=== PATIENT | male | born 1990 | race African-American/Black ===

== ENCOUNTER 2016-12-31 14:22 | Emergency (ER) | payer OTHER ==
[~2016-12-31 14:22] MED LIST: CEPH500C3 PO; IBUP800T23 PO; Z.0.NO CURRENT MEDS
[2016-12-31 14:28] VITALS: BP 154/92; PULSE 86; RESP 16; TEMP 98.2; O2SAT 99
[2016-12-31] MEDS ORDERED: MOTR200T4 PO (15:48)
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
== END 2016-12-31 16:01 | disposition home or self-care (01) ==
LOC: NEPK 14:22
DX: S39.012A Strain of muscle, fascia and tendon of lower back, initial encounter (principal); F17.210 Nicotine dependence, cigarettes, uncomplicated; V49.59XA Passenger injured in collision with other motor vehicles in traffic accident, initial encounter; Y92.410 Unspecified street and highway as the place of occurrence of the external cause
CPT/HCPCS: 99283

== ENCOUNTER 2017-01-19 13:36 | Emergency (ER) | payer SELFPAY ==
[~2017-01-19 13:36] MED LIST changes: -CEPH500C3 PO; -IBUP800T23 PO; +MOTR200T4 PO; -Z.0.NO CURRENT MEDS
[2017-01-19 13:38] VITALS: BP 141/87; PULSE 81; RESP 14; TEMP 98.4; O2SAT 98
--- NOTE | 2017-01-19 14:09 | PD ---
HPI Chief Complaint: GI Complaint Time Seen by Provider: 14:09 Travel History International Travel<30 days: No Contact w/Intl Traveler<30days: No Traveled to known affect area: No History of Present Illness HPI 26-year-old male presents to emergency Department with complaint of continued nausea after consuming raw chicken yesterday at [employer]. He reports vomiting one time last night and reports soft stool last night also. Denies hematochezia, hematemesis. Reports abdominal tenderness around the umbilical area, but denies abdominal pain. Denies fever. Has been drinking fluids today without vomiting. No bowel movement today. and has no other medical complaints. No known allergies. No other modifying factors or associated signs and symptoms. PFSH Past Medical History Cancer: No Diabetes: No Psychiatric: No Immunizations Current: Yes Seizures: No Thyroid Disease: No Ulcer: No Past Surgical History Other Surgery: No Social History Alcohol Use: No Tobacco Use: Yes (/2 PPD) Substance Use: No Allergies-Medications (Allergen,Severity, Reaction): Coded Allergies: No Known Allergies (Verified , 01/19/17) Reported Meds & Prescriptions Reported Meds & Active Scripts Active Zofran Odt (Ondansetron Odt) 4 Mg Tab 4 Mg SL Q8HR PRN Review of Systems Except as stated in HPI: all other systems reviewed are Neg Physical Exam Narrative GENERAL: Well-nourished, well-developed male patient, in no acute distress; afebrile; nontoxic appearing SKIN: Warm and dry. HEAD: Atraumatic. Normocephalic. EYES: Pupils equal and round. No scleral icterus. No injection or drainage. ENT: Mucosa pink and moist. Airway patent. NECK: Trachea midline. CARDIOVASCULAR: Regular rate and rhythm. No murmur appreciated. RESPIRATORY: No accessory muscle use. Clear to auscultation. Breath sounds equal bilaterally. GASTROINTESTINAL: Abdomen soft, tenderness on palpation to umbilical area, nondistended. Hepatic and splenic margins not palpable. Bowel sounds are active 4 quadrants. Nonrigid. No guarding. MUSCULOSKELETAL: No obvious deformities. No clubbing. No cyanosis. No edema. NEUROLOGICAL: Awake and alert. Oriented 3. No obvious cranial nerve deficits. Motor grossly within normal limits. Normal speech. PSYCHIATRIC: Appropriate mood and affect; insight and judgment normal. Data Data Last Documented VS Vital Signs Date Time Temp Pulse Resp B/P Pulse Ox O2 Delivery O2 Flow Rate FiO2 01/19/17 13:38 98.4 81 14 141/87 98 Orders Ondansetron Odt (Zofran Odt) (01/19/17 14:15) MDM Medical Decision Making Medical Screen Exam Complete: Yes Emergency Medical Condition: Yes Medical Record Reviewed: Yes Differential Diagnosis Gastritis, nausea, raw food consumption Narrative Course 26-year-old male with gastritis after consuming raw chicken yesterday. Vomited one time last night without continued vomiting today. Had one soft stool last night without continued bowel movements today. Patient is afebrile nontoxic appearing. He denies fever. I discussed the patient with Dr. Burk, by sending position, and she recommended the patient be discharged home with Zofran. Zofran administered in the ER. Zofran prescribed for home. Discussed reasons to return to the emergency department. Patient verbalizes understanding and agreement with treatment plan. Patient is medically cleared and stable for discharge. Instructed patient to follow up with primary care provider. Patient agrees with treatment plan. The patients vital signs are stable and the patient is stable for outpatient follow-up and treatment. Patient discharged home, stable and in no acute distress. Diagnosis Primary Impression: Gastritis Qualified Code: K29.00 - Other acute gastritis without hemorrhage Referrals: Primary Care Physician Patient Instructions: Gastritis (ED), General Instructions Additional Instructions: Zofran is prescribed and as needed for nausea/vomiting Increase diet to regular diet as tolerated Follow-up with primary care provider Return to the emergency department immediately with worsening of symptoms, particularly as discussed Med/Other Pt SpecificInfo: Prescription(s) given Scripts Ondansetron Odt (Zofran Odt)4 Mg Tab4 Mg SL Q8HR PRN (Nausea/Vomiting) #10 TAB Ref 0 Prov:Silva See 01/19/17 Disposition: 01 DISCHARGE HOME Condition: Stable Silva See Jan 19, 2017 14:09
[2017-01-19] MEDS ORDERED: ONDANSETRON ODT 4 MG TAB PO ONE (14:15)
[2017-01-19] MEDS ORDERED: ZOFR4TAB3 SL (14:17)
== END 2017-01-19 14:45 | disposition home or self-care (01) ==
LOC: NEPD 13:36
DX: K29.70 Gastritis, unspecified, without bleeding (principal); F17.200 Nicotine dependence, unspecified, uncomplicated
CPT/HCPCS: 99283

== ENCOUNTER 2017-01-28 04:23 | Inpatient (IN) | payer SELFPAY ==
[~2017-01-28] VITALS: Ht 172.7 cm; Wt 105.0 kg
[~2017-01-28 04:23] MED LIST changes: -MOTR200T4 PO; +ZOFR4TAB3 SL
[2017-01-28 04:27] VITALS: BP_SYST 125; BP_SYST 167; BP_DIAS 71; BP_DIAS 93; PULSE 77; RESP 18; TEMP 98.1; TEMP 98.4; O2SAT 100
[2017-01-28] MEDS ORDERED: MORPHINE SULFATE 4 MG/ML INJ IV PUSH ONE (05:00)
[2017-01-28] MEDS ORDERED: ONDANSETRON HCL 4 MG/2 ML VIAL IV ONE (05:00)
[2017-01-28] MEDS ORDERED: SODIUM CHLOR 0.9% 1000 ML INJ 1,000 ML IV ONE (05:00)
[2017-01-28 05:20] LABS: AUTOMATED NEUTROPHIL # 2.3 TH/MM3 (1.8-7.7); BASOPHIL # 0.1 TH/MM3 (0-0.2); BASOPHIL % 0.8 % (0.0-2.0); EOSINOPHIL # 0.2 TH/MM3 (0-0.4); EOSINOPHIL % 2.7 % (0.0-4.0); HEMATOCRIT 43.8 % (39.0-51.0); LYMPH % 60.9 % (9.0-44.0); LYMPHOCYTE # 4.9 TH/MM3 (1.0-4.8); MEAN CELL VOLUME 83.4 FL (80.0-100.0); MEAN CORPUSCULAR HEMOGLOBIN 28.2 PG (27.0-34.0); MEAN CORPUSCULAR HGB CONC 33.8 % (32.0-36.0); MONO % 6.8 % (0.0-8.0); NEUT % 28.8 % (16.0-70.0); PLATELET COUNT 264 TH/MM3 (150-450); RED BLOOD COUNT 5.26 MIL/MM3 (4.50-5.90); RED CELL DISTRIBUTION WIDTH 12.7 % (11.6-17.2)
[2017-01-28 05:21] LABS: HEMO FLAGS AUTO DIFF
--- NOTE | 2017-01-28 05:25 | PD ---
HPI Chief Complaint: Abdominal Pain Time Seen by Provider: 04:55 Travel History International Travel<30 days: No Contact w/Intl Traveler<30days: No Traveled to known affect area: No History of Present Illness HPI The patient is 26 year old male who presents to the [facility] emergency department with a history of right upper quadrant abdominal pain that began suddenly 30 minutes prior to arrival. The patient reports that the pain began at a mild severity having gradually worsened to more painful. The patient reports that the pain is an aching sensation. The patient reports the pain is constant. He reports that radiates to the right flank. The patient reports that he last ate approximately an hour and a half prior to the onset of the pain. He denies ever having a pain like this previously. He denies having any nausea, vomiting, or diarrhea associated with this. He denies having any recent constipation. He denies having any dysuria, hematuria, urinary urgency, or frequency. On review of systems, the patient denies any recent fevers, cough , congestion, neck pain, chest pain, shortness of breath, or neurologic symptoms. COUNT INCLUDES THE [facility] Past Medical History Narrative Medical The patient's past medical history is reportedly none. Medical History: Denies Significant Hx Cancer: No Diabetes: No Diminished Hearing: No Psychiatric: No Immunizations Current: Yes Seizures: No Thyroid Disease: No Ulcer: No Influenza Vaccination: No Past Surgical History Narrative Surgical Patient's past surgical history is reportedly none. Surgical History: No Previous Surgery Other Surgery: No Social History Alcohol Use: No Tobacco Use: Yes (/2 PPD) Substance Use: No Allergies-Medications (Allergen,Severity, Reaction): Coded Allergies: No Known Allergies (Verified , 01/28/17) Reported Meds & Prescriptions Reported Meds & Active Scripts Active No Active Prescriptions or Reported Medications Review of Systems Except as stated in HPI: all other systems reviewed are Neg General / Constitutional: No: Fever Eyes: No: Visual changes HENT: No: Headaches Cardiovascular: No: Chest Pain or Discomfort Respiratory: No: Shortness of Breath Gastrointestinal: Positive: Abdominal Pain, No: Nausea, Vomiting, Diarrhea, Hematochezia, Constipation, Changes in Bowel Habits, Indigestion, Loss of Appetite Genitourinary: No: Dysuria Musculoskeletal: No: Pain Skin: No Rash Neurologic: No: Weakness, Focal Abnormalities, Change in Mentation, Slurred Speech, Sensory Disturbance Psychiatric: No: Depression Endocrine: No: Polydipsia Hematologic/Lymphatic: No: Easy Bruising Physical Exam Narrative General: The patient is a well-developed well-nourished male in no acute distress. Head and Neck exam: Head is normocephalic atraumatic. Eyes: EOMI, pupils are equal round and reactive to light. Nose: Midline septum with pink mucous membranes Mouth: Dentition unremarkable. Moist mucus membranes. Posterior oropharynx is not erythematous. No tonsillar hypertrophy. Uvula midline. Airway patent. Neck: No palpable lymphadenopathy. No nuchal rigidity. No thyromegaly. Cardiovascular: Regular rate and rhythm without murmurs, gallops, or rubs. Lungs: Clear to auscultation bilaterally. No wheezes, rhonchi, or rales. Abdomen: Soft, with tenderness on palpation of the right upper quadrant with a positive Beckett sign. The patient also has tenderness on palpation of the midepigastric area. No other tenderness on palpation of the other quadrants of the abdomen. Normal bowel sounds are audible. No tenderness on palpation of McBurney's point. No guarding, rebound, or rigidity. Extremities: No clubbing, cyanosis, or edema. 2+ pulses in all 4 extremities. No calf tenderness on palpation. Back: No spinous process tenderness to palpation. No costovertebral angle tenderness to palpation. Neurologic Exam: Grossly nonfocal. Skin Exam: No rash noted. Intact skin that is warm and dry. Data Data Last Documented VS Vital Signs Date Time Temp Pulse Resp B/P Pulse Ox O2 Delivery O2 Flow Rate FiO2 01/28/17 06:08 80 18 120/59 98 Room Air 01/28/17 04:27 98.4 Orders Complete Blood Count With Diff (01/28/17 04:55) Comprehensive Metabolic Panel (01/28/17 04:55) C-Reactive Protein (Crp) (01/28/17 04:55) Lipase (01/28/17 04:55) Ct Abd/Pel W Iv Contrast(Rout) (01/28/17 04:55) Iv Access Insert/Monitor (01/28/17 04:55) Ecg Monitoring (01/28/17 04:55) Oximetry (01/28/17 04:55) Sodium Chlor 0.9% 1000 Ml Inj (Ns 1000 M (01/28/17 05:00) Ondansetron Inj (Zofran Inj) (01/28/17 05:00) Morphine Inj (Morphine Inj) (01/28/17 05:00) Potassium Chloride (Kcl) (01/28/17 09:00) Iohexol 350 Inj (Omnipaque 350 Inj) (01/28/17 06:20) Potassium Chloride (Kcl) (01/28/17 06:45) Piperacil-Tazo 3.375 Gm Premix (Zosyn 3. (01/28/17 07:00) Admit Order (Ed Use Only) (01/28/17 06:49) Labs Laboratory Tests Test 01/28/17 05:05 White Blood Count 8.0 TH/MM3 Red Blood Count 5.26 MIL/MM3 Hemoglobin 14.8 GM/DL Hematocrit 43.8 % Mean Corpuscular Volume 83.4 FL Mean Corpuscular Hemoglobin 28.2 PG Mean Corpuscular Hemoglobin 33.8 % Concent Red Cell Distribution Width 12.7 % Platelet Count 264 TH/MM3 Mean Platelet Volume 8.9 FL Neutrophils (%) (Auto) 28.8 % Lymphocytes (%) (Auto) 60.9 % Monocytes (%) (Auto) 6.8 % Eosinophils (%) (Auto) 2.7 % Basophils (%) (Auto) 0.8 % Neutrophils # (Auto) 2.3 TH/MM3 Lymphocytes # (Auto) 4.9 TH/MM3 Monocytes # (Auto) 0.5 TH/MM3 Eosinophils # (Auto) 0.2 TH/MM3 Basophils # (Auto) 0.1 TH/MM3 CBC Comment AUTO DIFF Differential Comment AUTO DIFF CONFIRMED Sodium Level 142 MEQ/L Potassium Level 3.3 MEQ/L Chloride Level 109 MEQ/L Carbon Dioxide Level 24.7 MEQ/L Anion Gap 8 MEQ/L Blood Urea Nitrogen 13 MG/DL Creatinine 0.85 MG/DL Estimat Glomerular Filtration 131 ML/MIN Rate Random Glucose 114 MG/DL Calcium Level 8.2 MG/DL Total Bilirubin 0.2 MG/DL Aspartate Amino Transf 16 U/L (AST/SGOT) Alanine Aminotransferase 31 U/L (ALT/SGPT) Alkaline Phosphatase 77 U/L C-Reactive Protein 0.45 MG/DL Total Protein 6.8 GM/DL Albumin 3.4 GM/DL Lipase 234 U/L MDM Medical Decision Making Medical Screen Exam Complete: Yes Emergency Medical Condition: Yes Medical Record Reviewed: Yes Differential Diagnosis Biliary colic, versus peptic ulcer disease, versus acid reflux, versus acute cholecystitis, versus pancreatitis Narrative Course During the course of the patients emergency department visit, the patients history, examination, and differential diagnosis were reviewed with the patient. The patient had IV access obtained and blood work sent for analysis. The patient was placed on a diagnostic cardiac sonographer with oximetry and blood pressure monitoring. A CT scan of the abdomen and pelvis was ordered. The patient was initially provided normal saline 1 L IV fluid bolus, morphine for pain, Zofran for nausea. The patients laboratory studies were reviewed and remarkable for a CBC that shows a white count of 8, hemoglobin 14.8, platelets 264 with 60.9 lymphocytes, CMP is remarkable for potassium of 3.3 which was supplemented orally, glucose 114, calcium 8.2, C-reactive protein 0.45, lipase 234 Radiology studies were reviewed and remarkable for CT scan of the abdomen and pelvis showed small. Cholecystic fluid, acute cholecystitis possible in the proper clinical setting, mild distention of the common bile duct of uncertain etiology, no perceptible known. The rest of the CT of the abdomen and pelvis is unremarkable, appendix is visualized and normal. A call was placed out to the general surgeon. I spoke to Dr. Field. He did agree to admit the patient for continued evaluation and treatment. The patient was given a dose of Zosyn 3.375 g IV. The patients results were discussed with the patient, including the plan of care. I explained that further testing and/ or monitoring is indicated based on the patients history, examination, and/ or laboratory findings. Therefore, I recommended admission for additional evaluation. The patient expressed understanding and was agreeable with this plan. The patient was admitted to the hospital in stable condition and sent to a bed under the care of the general surgeon. Diagnosis Primary Impression: Abdominal pain Qualified Code: R10.11 - Right upper quadrant abdominal pain Additional Impression: Acute cholecystitis Admitting Information Admitting Physician Requests: Admit Scripts No Active Prescriptions or Reported Meds Tia Maradiaga MD Jan 28, 2017 05:25
[2017-01-28 05:41] VITALS: O2SAT 98
[2017-01-28 05:46] LABS: ALT (GPT) 31 U/L (12-78); ANION GAP 8 MEQ/L (5-15); AST (GOT) 16 U/L (15-37); BICARBONATE 24.7 MEQ/L (21.0-32.0); BLOOD UREA NITROGEN 13 MG/DL (7-18); CHLORIDE 109 MEQ/L (98-107); GLOMERULAR FILTRATION RATE 131 ML/MIN (>89); POTASSIUM 3.3 MEQ/L (3.5-5.1); SODIUM (NA) 142 MEQ/L (136-145)
[2017-01-28 05:48] LABS: SCAN/DIFF AUTO DIFF CONFIRMED
[2017-01-28 05:49] LABS: ALKALINE PHOSPHATASE 77 U/L (45-117); TOTAL BILIRUBIN ADULT 0.2 MG/DL (0.2-1.0)
[2017-01-28 06:08] VITALS: BP 120/59; PULSE 80; RESP 18; O2SAT 98
[2017-01-28] MEDS ORDERED: IOHEXOL 350 MG/ML 10 ML VIAL (for RAD DIAG) IV ONE (06:20)
--- NOTE | 2017-01-28 06:36 | RADRPT ---
EXAM DATE/TIME: 01/28/2017 06:06 [facility] COMPARISON: No previous studies available for comparison. INDICATIONS : Right upper quadrant pain. IV CONTRAST: 94 cc Omnipaque 350 (iohexol) IV ORAL CONTRAST: No oral contrast ingested. RADIATION DOSE: 20.27 CTDIvol (mGy) MEDICAL HISTORY : None SURGICAL HISTORY : None. ENCOUNTER: Initial ACUITY: 1 day PAIN SCALE: 10/10 LOCATION: Right upper quadrant TECHNIQUE: Volumetric scanning of the abdomen and pelvis was performed. Using automated exposure control and ad justment of the mA and/or kV according to patient size, radiation dose was kept as low as reasonably achievable to obtain optimal diagnostic quality images. FINDINGS: LOWER LUNGS: Mild dependent atelectasis seen in the visualized lung bases. LIVER: Homogeneous density without lesion. There is no dilation of the biliary tree. There is mild perichol ecystic fluid. No radiopaque gallstone seen. Common bile duct caliber is prominent for patient this a ge, measures approximately 7.5 mm.. SPLEEN: Normal size without lesion. PANCREAS: Within normal limits. KIDNEYS: Normal in size and shape. There is no mass, stone or hydronephrosis. ADRENAL GLANDS: Within normal limits. VASCULAR: There is no aortic aneurysm. BOWEL/MESENTERY: The stomach, small bowel, and colon demonstrate no acute abnormality. There is no free intraperitone al air or fluid. The appendix is well-visualized and normal. ABDOMINAL WALL: Within normal limits. RETROPERITONEUM: There is no lymphadenopathy. BLADDER: No wall thickening or mass. REPRODUCTIVE: Within normal limits. INGUINAL: There is no lymphadenopathy or hernia. MUSCULOSKELETAL: Within normal limits for patient age. CONCLUSION: 1. Small pericholecystic fluid. Acute cholecystitis possible in the proper clinical setting. Mild dis tention of the common bile duct of uncertain etiology. No perceptible stone. 2. The breast of the CT of the abdomen and pelvis is within normal limits. The appendix is well-visua lized and normal. Girma Pretty MD on January 28, 2017 at 6:30 Board Certified Radiologist. This report was verified electronically.
[2017-01-28] MEDS ORDERED: POTASSIUM CHLORIDE 20 MEQ CONTROLLED RELEASE TAB PO ONE (06:45)
[2017-01-28] MEDS ORDERED: PIPERACIL-TAZO 3.375 GM PREMIX 50 ML IV ONE (07:00)
[2017-01-28 07:06] VITALS: BP 107/61; PULSE 68; RESP 16; O2SAT 98
--- NOTE | 2017-01-28 08:19 | RADRPT ---
EXAM DATE/TIME: 01/28/2017 07:41 [facility] COMPARISON: No previous studies available for comparison. INDICATIONS : RUQ pain. MEDICAL HISTORY : Abdominal pain. SURGICAL HISTORY : None. ENCOUNTER: Initial ACUITY: 2 days PAIN SCORE: 10/10 LOCATION: Right upper quadrant MEASUREMENTS: LIVER: 18.6 cm length COMMON DUCT: 9 mm RIGHT KIDNEY: 11.1 x 7.0 x 5.1 cm FINDINGS: LIVER: Borderline increased echotexture without focal lesion or ductal dilatation. Hepatopedal flow. COMMON DUCT: No intraluminal mass or stone visualized. GALLBLADDER: Contains shadowing stone in gallbladder neck, demonstrates no wall thickening or pericholecystic flui d. PANCREAS: The visualized portions are within normal limits. RIGHT KIDNEY: No evidence of hydronephrosis, stone, or mass. CONCLUSION: 1. Non-mobile gallstone in the gallbladder neck. 2. Liver is borderline increased in echogenicity which can be seen with mild hepatic steatosis. Sami Tolentino MD on January 28, 2017 at 8:16 Board Certified Radiologist. This report was verified electronically.
[2017-01-28] MEDS ORDERED: POTASSIUM CHLORIDE 20 MEQ CONTROLLED RELEASE TAB PO SCH (09:00)
[2017-01-28 09:05] VITALS: BP 106/54; PULSE 72; RESP 16; O2SAT 100
--- NOTE | 2017-01-28 18:04 | MB ---
cc: ARAM GRAYSON MD DATE OF CONSULTATION 01/28/2017 CHIEF COMPLAINT Abdominal pain. HISTORY OF PRESENT ILLNESS The patient is a 26-year-old male who presented to the emergency department with acute onset of right upper quadrant abdominal pain. The pain occurred approximately 30 minutes prior to being admitted to the emergency department. He states it was severe, it was 9/10, sharp, happened after he ate a meal and did not improve initially. He never had pain quite this severe before. He denied any associated nausea, vomiting or fevers or chills. The patient states the pain has improved with pain medication and was worse with movement. Further evaluation including CT scan and right upper quadrant ultrasound showing gallstones in the gallbladder with some gallbladder wall thickening. Normal WBC and normal AST, ALT and alk phos and T bili. Surgery was consulted. On my exam the patient's pain has significantly improved. It is much better than it was and the patient is resting comfortably now. PAST MEDICAL HISTORY The patient denies any medical history. PAST SURGICAL HISTORY The patient has had no surgery. ALLERGIES NO KNOWN DRUG ALLERGIES. SOCIAL HISTORY Occasional EtOH. Positive smoking. MEDICATIONS See EMR. FAMILY HISTORY Denies diabetes. Mother with unknown type of cancer. REVIEW OF SYSTEMS GENERAL: The patient denies fever or generalized pain. HEENT: Denies vision changes or headaches. NECK: Denies swelling or pain. RESPIRATORY: Denies cough or wheeze. GASTROINTESTINAL: Complains of abdominal pain. Denies nausea, vomiting. CARDIOVASCULAR: Denies chest pain or palpitations. GENITOURINARY: Denies dysuria, hematuria. MUSCULOSKELETAL: Denies arthralgia, myalgia. SKIN: Denies masses or lesions. NEUROLOGIC: Denies weakness or numbness. PSYCHIATRIC: Denies depression or change in mood. ENDOCRINE: Denies polyuria, polydipsia. HEMATOLOGIC: Denies easy bruising. PHYSICAL EXAMINATION GENERAL: The patient no acute distress. VITAL SIGNS: Temperature 98.4, pulse 77, respirations 18, blood pressure 125/71, saturation 100% on room air. HEENT: PERRLA, EOMI. No scleral icterus. NECK: Supple. Trachea midline. LUNGS: Clear to auscultation, bilateral expansion. HEART: S1-S2. Regular rhythm. ABDOMEN: Soft, nontender. No rebound or guarding. EXTREMITIES: Warm, well-perfused. No edema. NEUROLOGIC: GCS of 15, 5/5 motor all extremities. SKIN: No obvious masses or lesions. LABORATORY AND DIAGNOSTIC DATA White blood cell 8, hemoglobin 14.8, hematocrit 43.8, platelets 264. Sodium 142, potassium 3.3, BUN 13, creatinine 0.5, calcium 8.2, AST 16, ALT 31, T bili 0.2, lipase 234, albumin 3.4. IMAGING CT scan reviewed by myself. Small pericholecystic fluid questionable cholecystitis. Minimal dilation bile duct. Positive gallstones in gallbladder neck. Common bile duct 9 mm. No stone was visualized. The gallbladder contains gallstone in neck. No wall thickening. No pericholecystic fluid. ASSESSMENT The patient a 26-year-old male presents with acute onset of right upper quadrant pain consistent with symptomatic cholelithiasis. AST, ALT, alk phos, T bili all within normal limits. White count normal as well. The patient denies any fevers. PLAN After full clinical, radiologic and laboratory workup, the patient with symptomatic cholelithiasis. Discussed with the patient in regards and offered laparoscopic cholecystectomy. However, at this time the patient has no signs of infection and this could be managed as an outpatient. Discussed with the patient regarding cholecystectomy as an outpatient versus inpatient. The patient states that he wants to defer cholecystectomy for now. He will consider his options and will consider to observe clinically. We will have the patient follow up in the office in several weeks to reevaluate to see if the patient has decided for cholecystectomy. Discussed in detail regarding what to look for if acute onset of symptoms, return and told the patient to come to the emergency department if experiencing ant fevers, significant pain or change in a clinical status. The patient stated understanding, agreed and would like to proceed. MD KOREY Jim/AUBREY /3:41 PM /5:49 PM
== END 2017-01-28 14:20 | disposition home or self-care (01) | DRG 446 ==
LOC: NEPC 04:23 → NEDA 06:50
PROVIDERS: ADMIT Surgery; ATTEND Surgery
DX: K80.00 Calculus of gallbladder with acute cholecystitis without obstruction (principal); F17.210 Nicotine dependence, cigarettes, uncomplicated
CPT/HCPCS: 74177; 76705; 80053; 83690; 85025; 86140; 96361; 96374; 96375; J2270; J2405; J2543; J7030; Q9967

== ENCOUNTER 2017-10-27 00:44 | Emergency (ER) | payer SELFPAY ==
[~2017-10-27] VITALS: Ht 172.7 cm; Wt 110.0 kg
[2017-10-27 01:16] VITALS: O2SAT 20
[2017-10-27 01:40] VITALS: BP 129/58; PULSE 88; RESP 18; TEMP 98.3; O2SAT 100
[2017-10-27] MEDS ORDERED: CLOTR1%T TOPICAL (02:16)
--- NOTE | 2017-10-27 02:18 | PD ---
HPI Chief Complaint: Skin Problem Time Seen by Provider: 02:04 Travel History International Travel<30 days: No Contact w/Intl Traveler<30days: No Traveled to known affect area: No History of Present Illness HPI 27-year-old circumcised male presents for evaluation of dryness and flaky skin of the glans penis. It started 1 week ago. He denies any pain, itching. He denies any urethral discharge. He denies any testicular scrotal pain, nausea or vomiting, fevers or chills. He is sexually active. He is concerned that he has a yeast infection. He has no other complaints at this time. [facility] Past Medical History Cancer: No Diabetes: No Diminished Hearing: No Psychiatric: No Immunizations Current: Yes Seizures: No Thyroid Disease: No Ulcer: No Tetanus Vaccination: Unknown Influenza Vaccination: No Past Surgical History Surgical History: No Previous Surgery Other Surgery: No Social History Alcohol Use: No Tobacco Use: Yes (/2 PPD) Substance Use: No Allergies-Medications (Allergen,Severity, Reaction): Coded Allergies: No Known Allergies (Verified Adverse Reaction, Unknown, 10/27/17) Reported Meds & Prescriptions Reported Meds & Active Scripts Active Clotrimazole Topical (Clotrimazole) 1% Soln 1 Applic TOPICAL BID 21 Days Review of Systems Except as stated in HPI: all other systems reviewed are Neg Physical Exam Narrative GENERAL: Well-nourished male who is sleeping but easily arousable CARDIOVASCULAR: Regular rate and rhythm. No murmur appreciated. RESPIRATORY: No accessory muscle use. Clear to auscultation. Breath sounds equal bilaterally. GASTROINTESTINAL: Abdomen soft, non-tender, nondistended. Hepatic and splenic margins not palpable. examination reveals normal-appearing scrotum. There is some dry flaky erythematous skin noted around the base of the glans penis. There is no urethral discharge. No induration or fluctuance. Data Data Last Documented VS Vital Signs Date Time Temp Pulse Resp B/P (MAP) Pulse Ox O2 Delivery O2 Flow Rate FiO2 10/27/17 01:40 98.3 88 18 129/58 (81) 100 MDM Medical Decision Making Medical Screen Exam Complete: Yes Emergency Medical Condition: Yes Medical Record Reviewed: Yes Differential Diagnosis Balanitis, chancre, cellulitis Narrative Course The patient appears to have mild balanitis. He will be discharged with clotrimazole cream. Diagnosis Primary Impression: Balanitis Additional Instructions: Medication as prescribed. Follow-up with your primary care physician in 2 weeks. Return for any emergent medical conditions. Med/Other Pt SpecificInfo: Prescription(s) given Scripts Clotrimazole Topical (Clotrimazole Topical) 1% Soln 1 APPLIC TOPICAL BID for Fungal Infection for 21 Days, #30 ML 0 Refills Prov: Donta Hilton MD 10/27/17 Disposition: 01 DISCHARGE HOME Condition: Stable Tien Sutherland Oct 27, 2017 02:18
== END 2017-10-27 02:41 | disposition home or self-care (01) ==
LOC: NEPD 00:44
DX: N48.1 Balanitis (principal); F17.200 Nicotine dependence, unspecified, uncomplicated
CPT/HCPCS: 99283

== ENCOUNTER 2017-11-19 02:50 | Inpatient (IN) | payer SELFPAY ==
[2017-11-19] VITALS (7 sets, daily range): BP systolic 108–162; BP diastolic 58–90; PULSE 65–106; RESP 12–24; TEMP 97.8–98.4; O2SAT 95–99
[~2017-11-19 02:50] MED LIST changes: +CLOTR1%T TOPICAL; -ZOFR4TAB3 SL
--- NOTE | 2017-11-19 03:40 | PD ---
HPI Chief Complaint: Abdominal Pain Time Seen by Provider: 03:36 Travel History International Travel<30 days: No Contact w/Intl Traveler<30days: No Traveled to known affect area: No History of Present Illness HPI 27-year-old male presents to the emergency department for evaluation of abdominal pain. Patient has history of gallstones. Patient states he has had nausea without vomiting. No fever or chills. Pain radiates to the right flank. No report of dysuria frequency urgency or change in bowel habits no report of hematemesis coffee-ground emesis melena hematochezia. Patient rates pain 10/10 intensity. Patient is taking no medications. Patient has had CAT scan and ultrasound about a year ago and he was admitted for cholecystectomy but reports he was afraid so did not have surgery. Patient reports this is his third episode for symptom relief. Patient was diagnosed approximately 1 year ago with gallstones via of gallbladder attack and one of 2 in the last 24 hours with increasing pain intensity and unable to get relief. Patient denies any chronic medical problems, takes no medications on a regular basis, does smoke cigarettes, and denies substance use or alcohol use. [facility] Past Medical History Narrative Medical Gallstones; tobacco use; nursing notes reviewed Medical History: Denies Significant Hx Cancer: No Diabetes: No Diminished Hearing: No Psychiatric: No Immunizations Current: Yes Seizures: No Thyroid Disease: No Ulcer: No Past Surgical History Surgical History: No Previous Surgery Other Surgery: No Social History Alcohol Use: No Tobacco Use: Yes (1/2 PPD) Substance Use: No Allergies-Medications (Allergen,Severity, Reaction): Coded Allergies: No Known Allergies (Verified Adverse Reaction, Unknown, 11/19/17) Reported Meds & Prescriptions Reported Meds & Active Scripts Active Review of Systems Except as stated in HPI: all other systems reviewed are Neg Physical Exam Narrative GENERAL: Well-developed well-nourished male no acute distress no respiratory distress SKIN: Warm and dry. HEAD: Normocephalic. EYES: No scleral icterus. No injection or drainage. NECK: Supple, trachea midline. No JVD or lymphadenopathy. CARDIOVASCULAR: Regular rate and rhythm without murmurs, gallops, or rubs. RESPIRATORY: Breath sounds equal bilaterally. No accessory muscle use. GASTROINTESTINAL: Abdomen soft, tender to palpation right upper quadrant greater than left upper quadrant no guarding or rebound, nondistended. MUSCULOSKELETAL: No cyanosis, or edema. BACK: Nontender without obvious deformity. No CVA tenderness. Data Data Last Documented VS Vital Signs Date Time Temp Pulse Resp B/P (MAP) Pulse Ox O2 Delivery O2 Flow Rate FiO2 11/19/17 05:29 106 18 143/89 (107) 99 Room Air 11/19/17 03:10 98.2 Orders Orders Complete Blood Count With Diff (11/19/17 03:40) Comprehensive Metabolic Panel (11/19/17 03:40) Lipase (11/19/17 03:40) Ct Abd/Pel W Iv Contrast(Rout) (11/19/17 03:40) Iv Access Insert/Monitor (11/19/17 03:40) Ecg Monitoring (11/19/17 03:40) Oximetry (11/19/17 03:40) Sodium Chloride 0.9% Flush (Ns Flush) (11/19/17 03:45) Ondansetron Inj (Zofran Inj) (11/19/17 04:00) Hydromorphone Pf Inj (Dilaudid Pf Inj) (11/19/17 04:00) Iohexol 350 Inj (Omnipaque 350 Inj) (11/19/17 05:00) Us Abdomen Gallbladder (11/19/17 ) Hydromorphone Pf Inj (Dilaudid Pf Inj) (11/19/17 05:30) NPO (11/19/17 05:36) Labs Laboratory Tests Test 11/19/17 03:53 White Blood Count 8.4 TH/MM3 Red Blood Count 5.12 MIL/MM3 Hemoglobin 14.4 GM/DL Hematocrit 43.7 % Mean Corpuscular Volume 85.3 FL Mean Corpuscular Hemoglobin 28.1 PG Mean Corpuscular Hemoglobin Concent 32.9 % Red Cell Distribution Width 13.0 % Platelet Count 283 TH/MM3 Mean Platelet Volume 8.2 FL Neutrophils (%) (Auto) 47.2 % Lymphocytes (%) (Auto) 42.2 % Monocytes (%) (Auto) 5.9 % Eosinophils (%) (Auto) 3.5 % Basophils (%) (Auto) 1.2 % Neutrophils # (Auto) 4.0 TH/MM3 Lymphocytes # (Auto) 3.5 TH/MM3 Monocytes # (Auto) 0.5 TH/MM3 Eosinophils # (Auto) 0.3 TH/MM3 Basophils # (Auto) 0.1 TH/MM3 CBC Comment DIFF FINAL Differential Comment Blood Urea Nitrogen 12 MG/DL Creatinine 1.00 MG/DL Random Glucose 97 MG/DL Total Protein 7.1 GM/DL Albumin 3.6 GM/DL Calcium Level 8.9 MG/DL Alkaline Phosphatase 85 U/L Aspartate Amino Transf (AST/SGOT) 26 U/L Alanine Aminotransferase (ALT/SGPT) 51 U/L Total Bilirubin 0.2 MG/DL Sodium Level 141 MEQ/L Potassium Level 4.0 MEQ/L Chloride Level 108 MEQ/L Carbon Dioxide Level 28.0 MEQ/L Anion Gap 5 MEQ/L Estimat Glomerular Filtration Rate 108 ML/MIN Lipase 150 U/L [facility] Medical Decision Making Medical Screen Exam Complete: Yes Emergency Medical Condition: Yes Medical Record Reviewed: Yes Interpretation(s) Last Impressions Abdomen/Pelvis CT 11/19/17 0340 Signed Impressions: Service Date/Time: Sunday, November 19, 2017 04:51 - CONCLUSION: 1. Cholelithiasis. 2. No acute inflammatory process. Sami Tolentino MD Gall Bladder Ultrasound 11/19/17 0000 Signed Impressions: Service Date/Time: Sunday, November 19, 2017 05:27 - CONCLUSION: 1. Echogenic liver likely moderate hepatic steatosis. 2. Cholelithiasis. Sami Tolentino MD CBC & BMP Diagram 11/19/17 03:53 Total Protein 7.1, Albumin 3.6, Calcium Level 8.9, Alkaline Phosphatase 85, Aspartate Amino Transf (AST/SGOT) 26, Alanine Aminotransferase (ALT/SGPT) 51, Total Bilirubin 0.2 Vital Signs Date Time Temp Pulse Resp B/P (MAP) Pulse Ox O2 Delivery O2 Flow Rate FiO2 11/19/17 05:29 106 18 143/89 (107) 99 Room Air 11/19/17 03:10 98.2 84 24 148/74 (98) 99 Room Air 11/19/17 02:58 97.8 83 17 162/90 (114) 98 Differential Diagnosis Abdominal pain, cholecystitis, biliary colic, choledocholithiasis, pancreatitis , gastritis, peptic ulcer disease, viral syndrome, renal colic Narrative Course IV access obtained specimens collected for resulting; patient administered Zofran 4 mg IV and Dilaudid 0.5 mg IV Patient is aware that CT abdomen pelvis reveals isolated gallstone without inflammatory changes or edema or pericholecystic fluid patient states pain is worsening and is becoming intolerable. CBC with automated differential complete metabolic panel values are normal range; patient given additional dose of Dilaudid 1 mg as well as ultrasound ordered to evaluate for ultrasound Beckett sign and possible more sensitive evaluation for pericholecystic fluid or edema. Patient's case discussed with on-call surgeon Dr. Field who will admit the patient for cholecystectomy due to ongoing unresolved unrelieved biliary colic. Physician Communication Physician Communication discussed with Dr Field --admit to his service Diagnosis Primary Impression: Recurrent biliary colic Additional Impression: Cholelithiasis Admitting Information Admitting Physician Requests: Admit Teresa Villeda MD Nov 19, 2017 03:40
[2017-11-19] MEDS ORDERED: SODIUM CHLORIDE 0.9% FLUSH 10 ML FLUSH IV FLUSH PRN (03:45)
[2017-11-19] MEDS ORDERED: ONDANSETRON HCL 4 MG/2 ML VIAL IV PUSH ONE (04:00)
[2017-11-19] MEDS ORDERED: HYDROmorphone HCL PF 2 MG/ML VIAL IV PUSH ONE ×2 (04:00→05:30)
[2017-11-19 04:04] LABS: BASOPHIL # 0.1 TH/MM3 (0-0.2); BASOPHIL % 1.2 % (0.0-2.0); EOSINOPHIL # 0.3 TH/MM3 (0-0.4); EOSINOPHIL % 3.5 % (0.0-4.0); HEMATOCRIT 43.7 % (39.0-51.0); HEMOGLOBIN 14.4 GM/DL (13.0-17.0); LYMPH % 42.2 % (9.0-44.0); LYMPHOCYTE # 3.5 TH/MM3 (1.0-4.8); MEAN CELL VOLUME 85.3 FL (80.0-100.0); MEAN CORPUSCULAR HEMOGLOBIN 28.1 PG (27.0-34.0); MEAN CORPUSCULAR HGB CONC 32.9 % (32.0-36.0); MEAN PLATELET VOLUME 8.2 FL (7.0-11.0); MONO % 5.9 % (0.0-8.0); MONOCYTE # 0.5 TH/MM3 (0-0.9); NEUT % 47.2 % (16.0-70.0); PLATELET COUNT 283 TH/MM3 (150-450); RED BLOOD COUNT 5.12 MIL/MM3 (4.50-5.90); WHITE BLOOD COUNT 8.4 TH/MM3 (4.0-11.0)
[2017-11-19 04:22] LABS: ALBUMIN 3.6 GM/DL (3.4-5.0); ALT (GPT) 51 U/L (12-78); AST (GOT) 26 U/L (15-37); BLOOD UREA NITROGEN 12 MG/DL (7-18); CALCIUM 8.9 MG/DL (8.5-10.1); CHLORIDE 108 MEQ/L (98-107); GLOMERULAR FILTRATION RATE 108 ML/MIN (>89); GLUCOSE,RANDOM 97 MG/DL (74-106); SODIUM (NA) 141 MEQ/L (136-145)
[2017-11-19 04:24] LABS: ALKALINE PHOSPHATASE 85 U/L (45-117); TOTAL BILIRUBIN ADULT 0.2 MG/DL (0.2-1.0); TOTAL PROTEIN 7.1 GM/DL (6.4-8.2)
[2017-11-19] MEDS ORDERED: IOHEXOL 350 MG/ML 10 ML VIAL (for RAD DIAG) IVCONTRAST ONE (05:00)
--- NOTE | 2017-11-19 05:07 | RADRPT ---
EXAM DATE/TIME: 11/19/2017 04:51 [facility] COMPARISON: CT ABDOMEN & PELVIS W CONTRAST, January 28, 2017, 6:06. INDICATIONS : Abdomen pain. IV CONTRAST: 100 cc Omnipaque 350 (iohexol) IV ORAL CONTRAST: No oral contrast ingested. RADIATION DOSE: 16.86 CTDIvol (mGy) MEDICAL HISTORY : gallstones. SURGICAL HISTORY : None. ENCOUNTER: Initial ACUITY: 1 day PAIN SCALE: 5/10 LOCATION: Right upper quadrant TECHNIQUE: Volumetric scanning of the abdomen and pelvis was performed. Using automated exposure control and ad justment of the mA and/or kV according to patient size, radiation dose was kept as low as reasonably achievable to obtain optimal diagnostic quality images. DICOM format image data is available electro nically for review and comparison. FINDINGS: LOWER LUNGS: The visualized lower lungs are clear. LIVER: Homogeneous density without lesion. There is no dilation of the biliary tree. Small calcified gallst one. SPLEEN: Normal size without lesion. PANCREAS: Within normal limits. KIDNEYS: Normal in size and shape. There is no mass, stone or hydronephrosis. ADRENAL GLANDS: Within normal limits. VASCULAR: There is no aortic aneurysm. BOWEL/MESENTERY: The stomach, small bowel, and colon demonstrate no acute abnormality. Normal appendix. There is no fr ee intraperitoneal air or fluid. ABDOMINAL WALL: Within normal limits. RETROPERITONEUM: There is no lymphadenopathy. BLADDER: No wall thickening or mass. REPRODUCTIVE: Within normal limits. INGUINAL: There is no lymphadenopathy or hernia. MUSCULOSKELETAL: Within normal limits for patient age. CONCLUSION: 1. Cholelithiasis. 2. No acute inflammatory process. Saim Tolentino MD on November 19, 2017 at 5:04 Board Certified Radiologist. This report was verified electronically.
--- NOTE | 2017-11-19 06:30 | RADRPT ---
EXAM DATE/TIME: 11/19/2017 05:27 [facility] COMPARISON: CT ABDOMEN & PELVIS W CONTRAST, November 19, 2017, 4:51. US ABDOMEN - GALLBLADDER, January 28, 2017, 7:41. INDICATIONS : Right upper quadrant pain. MEDICAL HISTORY : Cholelithiasis. Nausea. SURGICAL HISTORY : None. ENCOUNTER: Subsequent ACUITY: 1 day PAIN SCORE: 7/10 LOCATION: Right upper quadrant MEASUREMENTS: LIVER: 20.6 cm length COMMON DUCT: 8 mm RIGHT KIDNEY: 11.4 x 6.6 x 5.0 cm FINDINGS: LIVER: Diffuse discogenic without focal lesion or ductal dilatation. COMMON DUCT: No intraluminal mass or stone visualized. GALLBLADDER: contains gallstones without wall thickening or pericholecystic fluid. PANCREAS: The visualized portions are within normal limits. RIGHT KIDNEY: No evidence of hydronephrosis, stone, or mass. CONCLUSION: 1. Echogenic liver likely moderate hepatic steatosis. 2. Cholelithiasis. Sami Tolentino MD on November 19, 2017 at 6:27 Board Certified Radiologist. This report was verified electronically.
[2017-11-19] MEDS ORDERED: PIPERACIL-TAZO 3.375 GM PREMIX 50 ML IV ONE (07:00)
[2017-11-19] MEDS ORDERED: oxyCODONE/ACETAMINOPHEN 5 MG/325 MG TAB PO PRN (07:30)
[2017-11-19] MEDS ORDERED: METOCLOPRAMIDE HCL 10 MG/2 ML VIAL IV PUSH PRN (07:30)
[2017-11-19] MEDS: SODIUM CHLORIDE 0.9% FLUSH 10 ML FLUSH IV FLUSH SCH ×2 (09:00→21:01)
--- NOTE | 2017-11-19 09:10 | MH ---
cc: Deandre Field MD DATE OF ADMISSION: 11/19/2017 CHIEF COMPLAINT: Right upper quadrant abdominal pain, history of symptomatic cholelithiasis. HISTORY OF PRESENT ILLNESS: The patient is a 27-year-old male who presented to the emergency department with acute onset of right upper quadrant abdominal pain. The patient states the pain has been going on for the past several months. However, in the last 2 days, got severely worse and persistent. The pain is sharp right upper quadrant, 8/10, some relief with pain medications. He complains of some nausea, vomiting. Denies fevers or chills. The patient had CT scan and further evaluation showing confirmation of gallstones. Ultrasound confirmed this as well. Laboratory values were within normal limits. The patient was seen last 01/28/2017 for similar complaints and similar workup with stones at this time for which he was declining undergoing surgery. At this point, the patient states the pain is severe significant and he would like to proceed with surgical intervention. PAST MEDICAL HISTORY: The patient has history of gallstones and cholelithiasis, symptomatic. PAST SURGICAL HISTORY: The patient has no surgeries. ALLERGIES: NO KNOWN DRUG ALLERGIES. SOCIAL HISTORY: Occasional ETOH. Positive smoking. MEDICATIONS: See electronic medical record, FAMILY HISTORY: Denies diabetes. Mother with unknown cancer. REVIEW OF SYSTEMS: GENERAL: Denies fevers. HEENT: Denies eye pain, ear pain. NECK: Denies swelling or pain. LUNGS: Denies cough or wheezes. HEART: Denies palpitations or chest pain. GASTROINTESTINAL: Complaints of nausea, abdominal pain. GENITOURINARY: Denies dysuria, hematuria. NEUROLOGIC: Denies numbness or weakness. ENDOCRINE: Denies polyuria, polydipsia. PHYSICAL EXAMINATION: GENERAL: The patient in no acute distress. VITAL SIGNS: Temperature is 98.4, pulse 76, respirations 18, blood pressure 108/58, saturation 99%. HEENT: Pupils equal, round, reactive. NECK: Supple. Trachea midline. LUNGS: Clear to auscultation bilaterally. Bilateral expansion. HEART: S1, S2. Regular. ABDOMEN: Soft, positive tenderness to palpation in right upper quadrant, localized rebound. Nondistended. EXTREMITIES: Warm and well perfused. NEUROLOGIC: GCS 15. 5/5 motor in all extremities. INTEGUMENT: No obvious masses or lesions. LABORATORY AND DIAGNOSTIC DATA: WBC 8.4, hemoglobin 14.4, hematocrit 43.7, platelets 283. Sodium 141, potassium 4, chloride 108, BUN 12, creatinine 1, AST 26, ALT 51, alkaline phosphatase 85, lipase 150. IMAGING: Reviewed by myself. CT scan abdomen and pelvis showing multiple gallstones within the gallbladder. Gallbladder ultrasound confirming this. ASSESSMENT: The patient is a 27-year-old male who presents with acute onset right upper quadrant pain, history of gallstones and symptomatic cholelithiasis continued presentation. PLAN: After full clinical, radiologic, laboratory workup, the patient with the above-named issues. At this point, we will plan for laparoscopic cholecystectomy. Discussed with the patient in detail. He states understanding and agrees and would like to proceed. The patient will be n.p.o., IV fluids, IV pain control, and we will admit the patient to the hospital. Deandre Field MD LSN/MARICARMEN , 08:42 AM , 09:08 AM
[2017-11-19] MEDS: PANTOPRAZOLE SODIUM 40 MG VIAL IV PUSH SCH (09:55)
[2017-11-19] MEDS: SODIUM CHLOR 0.9% 1000 ML INJ 1,000 ML IV SCH ×2 (09:55→11:30)
[2017-11-19] MEDS: SODIUM CHLORIDE 0.9% FLUSH 10 ML FLUSH IV FLUSH PRN ×2 (11:30→23:56)
[2017-11-19] MEDS ORDERED: PROPOFOL 200 MG/20 ML AMP IV ONE (12:00)
[2017-11-19] MEDS ORDERED: GLYCOPYRROLATE 1 MG/5 ML SYRINGE IV PUSH ONE (12:00)
[2017-11-19] MEDS ORDERED: LACTATED RINGER'S 1000 ML INJ 1,000 ML IV ONE (12:00)
[2017-11-19] MEDS ORDERED: DEXAMETHASONE SOD PHOS 4 MG/ML VIAL IV ONE (12:00)
[2017-11-19] MEDS ORDERED: NEOSTIGMINE 5 MG/5 ML SYRINGE IV PUSH ONE (12:00)
[2017-11-19] MEDS ORDERED: LIDOCAINE HCL 1% PF 5 ML SYRINGE OTHER ONE (12:00)
[2017-11-19] MEDS ORDERED: ROCURONIUM INJ 50 MG/5 ML SYRINGE IV PUSH ONE (12:00)
[2017-11-19] MEDS ORDERED: KETOROLAC TROMETHAMINE 30 MG/ML (IVP) VIAL IV PUSH ONE (12:00)
[2017-11-19] MEDS ORDERED: ceFAZolin INJ 1,000 MG VIAL IV ONE ×2 (12:00→15:26)
[2017-11-19] MEDS ORDERED: ONDANSETRON HCL 4 MG/2 ML VIAL IV ONE (12:00)
--- NOTE | 2017-11-19 15:00 | HHI.PR ---
Immediate Post Op Note Procedure Date: Nov 19, 2017 Pre Op Diagnosis: symptomatic cholelithiasis Post Op Diagnosis: same Surgeon: Deandre Field MD Kettle Worker(s): see or sheet Procedure: lap ross Findings: distended gallbladder Complications: none Specimen(s) removed: gallbladder Estimated blood loss: 5cc Anesthesia: General Drains: None Patient to: PACU Patient Condition: Good Deandre Field MD Nov 19, 2017 15:00
[2017-11-19] MEDS ORDERED: BUPIVACAINE/EPINEPHRINE 0.5% PF 30 ML VIAL INFIL ONE (15:27)
[2017-11-19] MEDS ORDERED: DO NOT ADM ANY ANTICOAGULANT DRUGS PRN (16:18)
[2017-11-19] MEDS ORDERED: MIDAZOLAM HCL 2 MG/2 ML VIAL ONE (16:29)
[2017-11-19] MEDS ORDERED: *morphine SULFATE 4 MG/ML PERIprocedure ONLY ONE (17:17)
[2017-11-19] MEDS: MORPHINE SULFATE 2 MG/ML SYRINGE IV PUSH PRN ×2 (21:00→23:55)
[2017-11-20] VITALS: BP 135/67; PULSE 89; RESP 16; TEMP 98.1; O2SAT 97
[2017-11-20] MEDS: MORPHINE SULFATE 2 MG/ML SYRINGE IV PUSH PRN ×2 (03:20→08:06)
[2017-11-20] MEDS: SODIUM CHLORIDE 0.9% FLUSH 10 ML FLUSH IV FLUSH PRN (03:21)
[2017-11-20 04:00] VITALS: BP 142/75; PULSE 74; RESP 20; TEMP 98.7; O2SAT 98
[2017-11-20] MEDS: PANTOPRAZOLE SODIUM 40 MG VIAL IV PUSH SCH (08:06)
[2017-11-20 08:10] VITALS: BP 140/94; PULSE 84; RESP 20; TEMP 98.1; O2SAT 98
[2017-11-20] MEDS: SODIUM CHLORIDE 0.9% FLUSH 10 ML FLUSH IV FLUSH SCH (09:16)
[2017-11-20] MEDS ORDERED: oxyCODONE/ACETAMINOPHEN 5 MG/325 MG TAB PO PRN (11:00)
[2017-11-20] MEDS ORDERED: OXYC1TAB63 PO (11:01)
[2017-11-20 12:00] VITALS: BP 136/81; PULSE 89; RESP 18; TEMP 97.6; O2SAT 100
--- NOTE | 2017-11-20 13:07 | HHI.DS ---
Discharge Summary Admission Date Nov 19, 2017 at 06:47 Discharge Date: Nov 20, 2017 Admitting Diagnosis biliary colic; cholelithiasis Brief History This is a 27 year old male POD1 lap ross CBC/BMP: 11/19/17 0353 11/19/17 0353 Significant Findings Laboratory Tests Test 11/19/17 03:53 Chloride Level 108 MEQ/L (98-107) PE at Discharge Alert and awake sitting on the side of the bed Cardio: RRR Resp: CTAB Abd: lap sites c/d/i; mild post tenderness Hospital Course This is a 27 year old male POD1 lap ross. The patient's diet was advanced as tolerated. His pain was controlled using oral pain medications. He was able to ambulate independently. The patient will follow up with Dr. Field on December 01. Pt Condition on Discharge: Good Discharge Disposition: Discharge Home Discharge Instructions DIET: Follow Instructions for: As Tolerated, No Restrictions Danyelle Elise/Process Steward LULU Nov 20, 2017 13:07
== END 2017-11-20 14:56 | disposition home or self-care (01) | DRG 419 ==
LOC: NEPC 02:50 → NEDA 06:47 → NEDH 08:08 → H6YA 10:40
PROVIDERS: ADMIT Surgery; ATTEND Surgery
PROC: 0FT44ZZ Resection of Gallbladder, Percutaneous Endoscopic Approach (ICD-10-PCS; principal; 2017-11-19 14:56)
DX: K80.20 Calculus of gallbladder without cholecystitis without obstruction (principal); F17.210 Nicotine dependence, cigarettes, uncomplicated
CPT/HCPCS: 74177; 76705; 80053; 83690; 85025; 88304; 96374; 96375; 96376; C9113; J0690; J1100; J1170; J1885; J2250; J2270; J2405; J2543; J2710; J3010; J7030; J7120; Q9967